=== PATIENT | male | born 1955 | race African-American/Black ===

== ENCOUNTER 2018-04-15 09:10 | Emergency (ER) | payer OTHER ==
[~2018-04-15] VITALS: Ht 193 cm; Wt 103.0 kg
[2018-04-15 09:20] VITALS: BP 135/96
[2018-04-15] MEDS ORDERED: FLUORESCEIN SODIUM 1MG/STRIP OP ONE (09:45)
[2018-04-15] MEDS ORDERED: TETRACAINE 0.5% OPHTH DROPS 4ML OP ONE (09:45)
== END 2018-04-15 10:16 | disposition home or self-care (01) ==
LOC: ER 09:18
DX: H11.32 Conjunctival hemorrhage, left eye (principal); J45.909 Unspecified asthma, uncomplicated; Z88.0 Allergy status to penicillin; Z88.6 Allergy status to analgesic agent
CPT/HCPCS: 99283; Z7610

== ENCOUNTER 2020-10-14 00:21 | Emergency (ER) | payer MEDICARE, MEDICAID ==
[~2020-10-14] VITALS: Ht 193 cm; Wt 103.0 kg
[2020-10-14] MEDS ORDERED: MORPHINE SULFATE 4 MG/ML CPJ (NOT FOR IM USE) IV STA (02:02)
[2020-10-14] MEDS ORDERED: ONDANSETRON HCL 4MG/2ML INJ IV STA (02:02)
[2020-10-14 02:38] LABS: BASOPHILS % 0.2 % (0.0-2.0); EOSINOPHILS % 0.6 % (0.0-5.0); HEMATOCRIT. 44.8 % (42.0-52.0); HEMOGLOBIN. 14.8 g/dL (14.0-18.0); LYMPHOCYTES % 10.6 % (20.0-50.0); MEAN CORPUSCULAR HEMOGLOBIN 29.8 pg (28.0-32.0); MEAN CORPUSCULAR VOLUME 90.1 fL (80.0-94.0); MONOCYTES % 6.4 % (2.0-8.0); NEUTROPHILS % 82.2 % (40.0-76.0); PLATELET 148 x1000/uL (130-400); RED BLOOD CELL COUNT 4.97 mill/uL (4.7-6.1); RED CELL DISTRIBUTION WIDTH 14.4 % (11.6-14.6)
[2020-10-14 02:41] LABS: CHLORIDE 104 mEq/L (98-107)
[2020-10-14 02:45] LABS: PARTIAL THROMBOPLASTIN TIME 25.8 sec (23.4-31.0); PROTHROMBIN TIME 10.9 sec (9.6-11.0)
[2020-10-14] MEDS ORDERED: MORPHINE SULFATE 4 MG/ML CPJ (NOT FOR IM USE) IV ONE ×2 (03:30→07:30)
[2020-10-14] MEDS ORDERED: IOHEXOL-300 100 ML BOTTLE ONE (03:38)
[2020-10-14] MEDS ORDERED: LEVOFLOXACIN 750MG PREMIX 150 ML IV NR (04:15)
[2020-10-14] MEDS ORDERED: METRONIDAZOLE 500 MG PREMIX 100 ML IV NR (04:15)
[2020-10-14] MEDS ORDERED: SODIUM CHLORIDE 0.9% 1,000 ML IV NR (04:15)
[2020-10-14 06:03] LABS: CLARITY URINE CLEAR (CLEAR); COLOR URINE YELLOW (YELLOW); KETONES URINE NEGATIVE (NEGATIVE); LEUKOCYTE ESTERASE URINE NEGATIVE (NEGATIVE); NITRITE URINE NEGATIVE (NEGATIVE); OCCULT BLOOD URINE NEGATIVE (NEGATIVE); PH URINE 8.5 (4.5-8.0); PROTEIN URINE NEGATIVE (NEGATIVE); SPECIFIC GRAVITY URINE 1.043 (1.005-1.030)
[2020-10-14] MEDS ORDERED: ONDANSETRON HCL 4MG/2ML INJ IV ONE (07:30)
[2020-10-14 09:00] VITALS: BP 128/76
== END 2020-10-14 09:33 | disposition short-term general hospital (02) ==
LOC: ER 00:36
DX: K35.80 Unspecified acute appendicitis (principal); J45.909 Unspecified asthma, uncomplicated; Z88.0 Allergy status to penicillin; Z88.6 Allergy status to analgesic agent; Z88.8 Allergy status to other drugs, medicaments and biological substances; Z87.19 Personal history of other diseases of the digestive system
CPT/HCPCS: 36415; 74177; 80053; 81003; 83690; 85025; 85610; 85730; 86850; 86900; 86901; 93005; 96365; 96366; 96368; 96375; 96376; 99285; J1956; J2270; J2405; J3490; Q9967

== ENCOUNTER 2020-11-17 09:11 | Emergency (ER) | payer MEDICARE, MEDICAID ==
[~2020-11-17] VITALS: Ht 193 cm; Wt 98.0 kg
[2020-11-17] MEDS ORDERED: KETOROLAC 15MG/ML VIAL IV ONE (11:00)
[2020-11-17] MEDS ORDERED: METHOCARBAMOL 750MG TABLET PO SCH (11:00)
[2020-11-17] MEDS ORDERED: MORPHINE SULFATE 4 MG/ML CPJ (NOT FOR IM USE) IV ONE (11:00)
[2020-11-17 11:59] LABS: CLARITY URINE CLEAR (CLEAR); COLOR URINE YELLOW (YELLOW); KETONES URINE TRACE (NEGATIVE); LEUKOCYTE ESTERASE URINE NEGATIVE (NEGATIVE); NITRITE URINE NEGATIVE (NEGATIVE); OCCULT BLOOD URINE 2+ (NEGATIVE); PROTEIN URINE TRACE (NEGATIVE); SPECIFIC GRAVITY URINE 1.028 (1.005-1.030)
[2020-11-17 12:50] LABS: BASOPHILS % 0.2 % (0.0-2.0); HEMATOCRIT. 41.9 % (42.0-52.0); HEMOGLOBIN. 14.2 g/dL (14.0-18.0); LYMPHOCYTES % 10.8 % (20.0-50.0); MEAN CORPUSCULAR HEMOGLOBIN 30.4 pg (28.0-32.0); MEAN CORPUSCULAR VOLUME 89.7 fL (80.0-94.0); MEAN PLATELET VOLUME 8.5 fl (7.4-10.4); MONOCYTES % 9.4 % (2.0-8.0); NEUTROPHILS % 79.6 % (40.0-76.0); PLATELET 160 x1000/uL (130-400); RED BLOOD CELL COUNT 4.67 mill/uL (4.7-6.1); RED CELL DISTRIBUTION WIDTH 14.3 % (11.6-14.6)
[2020-11-17 12:53] LABS: CHLORIDE 103 mEq/L (98-107)
[2020-11-17] MEDS ORDERED: OXYC1TAB21 MT (14:13)
[2020-11-17] MEDS ORDERED: DOXY100C42 MT (14:13)
[2020-11-17] MEDS ORDERED: METH-774 MT (14:13)
[2020-11-17] MEDS ORDERED: OXYCODONE HCL/ACETAMINOPHEN 5/325MG TABLET PO ONE (14:15)
[2020-11-17 14:44] VITALS: BP 143/91
== END 2020-11-17 14:45 | disposition home or self-care (01) ==
LOC: ER 09:11
DX: J18.9 Pneumonia, unspecified organism (principal); M62.830 Muscle spasm of back; I49.9 Cardiac arrhythmia, unspecified; Z88.0 Allergy status to penicillin; Z88.6 Allergy status to analgesic agent
CPT/HCPCS: 36415; 74176; 80048; 81003; 85025; 93005; 96374; 96375; 99285; J1885; J2270